=== PATIENT | female | born 1970 | race Two or more races ===

== ENCOUNTER 2021-02-12 18:34 | Emergency (ER) | payer OTHER ==
[~2021-02-12] VITALS: Ht 157.5 cm; Wt 88.9 kg
[~2021-02-12 18:34] MED LIST: ASA81 MG; BENICAR20 MG
[2021-02-12] MEDS ORDERED: ATORVASTATIN CA10 MG (19:53)
[2021-02-12] MEDS ORDERED: [UNRECOGNIZED DRUG - OTHER] (19:54)
[2021-02-12] MEDS ORDERED: LASIX20 MG PO (22:35)
== END 2021-02-12 22:42 | disposition home or self-care (01) ==
LOC: ER 18:34
DX: L03.116 Cellulitis of left lower limb (principal)